=== PATIENT | female | born 1955 | race Caucasian/White ===

== ENCOUNTER 2017-02-21 08:24 | Outpatient (CLI) | payer OTHER ==
--- NOTE | 2017-02-21 10:21 | Fluoroscopy Report ---
FLUOROSCOPY THERAPEUTIC ENEMA History: Constipation Findings: Ingredient Handler film of the abdomen is unremarkable. 13 fluoroscopic images were obtained following infusion of 1 L of Gastrografin into the colon. There is mild fecal matter within the ascending colon. No evidence for abnormal dilatation, mass or large polyps. The appendix was not visualized. There is near-complete complete emptying of the colon on the postevacuation film. Impression: Successful therapeutic Gastrografin enema. No gross colonic lesion is identified.
== END 2017-02-21 08:25 | disposition home or self-care (01) ==
LOC: FLUORO 08:24
PROVIDERS: ATTEND Internal Medicine Gastroenterology
DX: K59.00 Constipation, unspecified (principal)
CPT/HCPCS: 74283; Q9963